=== PATIENT | male | born 1930 | race Caucasian/White ===

== ENCOUNTER 2017-05-08 07:18 | Day surgery (SDC) | payer OTHER, BC ==
[2017-05-07 15:51] VITALS: BMI 21.1
[2017-05-08] MEDS ORDERED: TAMSULOSIN HCL 0.4 MG CAP.ER.24H (FP) ONE (07:44)
[2017-05-08] MEDS ORDERED: PIPERACILLIN/TAZOB 3.375 GM/50 ML PRE-DOCKED IVPB ONE (09:45)
[2017-05-08] MEDS ORDERED: PROPOFOL 20 ML ONE ×3 (10:39→11:54)
[2017-05-08] MEDS ORDERED: ROCURONIUM BROMIDE 50 MG/5 ML VIAL ONE (10:43)
[2017-05-08] MEDS ORDERED: DEXAMETHASONE SOD PHOSPHATE 4 MG/1 ML VIAL ONE (11:38)
[2017-05-08] MEDS ORDERED: ONDANSETRON 4 MG/2 ML VIAL ONE (11:38)
[2017-05-08] MEDS ORDERED: GLYCOPYRROLATE 0.2 MG/1 ML VIAL ONE (12:04)
[2017-05-08] MEDS ORDERED: NEOSTIGMINE METHYLSULFATE 0.5 MG/ML - 10 ML MDV ONE (12:04)
[2017-05-08] MEDS ORDERED: ONDANSETRON 4 MG/2 ML VIAL IVPUSH PRN (12:31)
[2017-05-08] MEDS ORDERED: oxyCODONE HCL 5 MG TABLET PO PRN (12:31)
[2017-05-08] MEDS ORDERED: ACETAMINOPHEN 325 MG TABLET (FP) PO PRN (12:31)
[2017-05-08] MEDS ORDERED: ACETAMINOPHEN INJECTION 100 ML IVPB ONE (12:59)
[2017-05-08] MEDS ORDERED: ACETAMINOPHEN 1000 MG/100 ML VIAL (NON FORMULARY) IVPB ONE (13:02)
--- NOTE | 2017-05-08 14:45 | OP ---
DATE OF OPERATION: 05/08/2017 PREOPERATIVE DIAGNOSIS: Chronically incarcerated right inguinal hernia, inguinal scrotal hernia. POSTOPERATIVE DIAGNOSIS: Chronically incarcerated right inguinal hernia, inguinal scrotal hernia. PROCEDURE: 1. Laparoscopic repair of chronically incarcerated right inguinal scrotal hernia with mesh. 2. Laparoscopic repair of left inguinal hernia with mesh SURGEON: Jamey Stark MD [employer] FURNACE INSTALLER: Trevor Spivey MD ANESTHESIA: Kane Goldberg DO (general). ESTIMATED BLOOD LOSS: Minimal. SPECIMEN: None. DESCRIPTION OF PROCEDURE: This is an 86-year-old gentleman with a very longstanding history of having a large inguinal scrotal hernia that is chronically incarcerated. Patient was being followed since he did not wish to undergo surgery. Approximately two weeks ago, he presented to the hospital with acute incarceration that required manual reduction of the acutely incarcerated component. The chronically incarcerated component was not reduced. This alleviated his acute pain, and the patient is now here for an operative repair. Patient was identified and appropriately positioned on the operating room table. After placement of general anesthesia, the abdomen was prepped and draped in the usual sterile fashion with ChloraPrep. An infraumbilical incision was made deep into the subcutaneous tissues. The fascia of the rectus muscle on the right identified. The muscle split. Under direct vision, the dissector balloon followed by structural balloon placed. Also, under direct vision, a suprapubic 11-mm port placed. Due to the large sac and chronicity of incarceration of the right inguinal hernia, a 5- mm left lower quadrant PD port placed under direct vision, as well. The sac identified and from the cord structures with blunt and sharp dissection. The sac was reduced back into the preperitoneal space. A 4.5 x 6 piece of Versatex mesh was keyhole placed through the suprapubic port site. The mesh wrapped around the cord structures laterally to reconstruct the internal ring. Laterally, the mesh anchored to the anterior abdominal wall and lateral abdominal wall, and medially the mesh anchored to the anterior abdominal wall, pubic tubercle, and Coopers ligament. The sac itself was anchored to the anterior abdominal wall. Upon completion of the right side, similar structures on the left side identified. On the left side, the patient was noted to have a small indirect inguinal hernia sac. This reduced back into the preperitoneal space. A 4.5 x 6 piece of Versatex mesh was keyhole placed through the suprapubic port site. The mesh wrapped around the cord structures laterally to reconstruct the internal ring. Laterally, the mesh anchored to the anterior abdominal wall and lateral abdominal wall. Medialy, the mesh was overlapped in the midline, anchored to anterior abdominal wall, pubic tubercle, and Coopers ligament. The preperitoneal space desufflated under direct vision. The operative field examined and noted to be hemostatic. The patient on the right had a large indirect inguinal hernia. The direct floor was not violated, but markedly attenuated. He had a similar finding on the left side. There was no direct component, but the direct inguinal floor was attenuated, and he had a smaller indirect inguinal hernia. The fascia at both port sites were reapproximated with interrupted 0 Vicryl suture, and the skin closed with 4-0 subcuticular Biosyn followed by Dermabond. At the conclusion of the case, sponge counts were correct. ATTESTATION: Brief operative note handwritten on the preprinted form. [facility] will be queried prior to giving any narcotics. Radha AUGUSTE [id number] MTDD
[2017-05-08] MEDS: METOPROLOL TARTRATE 50 MG TABLET (FP) PO SCH (21:18)
[2017-05-08] MEDS ORDERED: ATORVASTATIN CA 10 MG TABLET (FP) PO SCH (22:00)
[2017-05-08] MEDS ORDERED: FINASTERIDE 5 MG TABLET (FP) PO SCH (22:00)
[2017-05-08] MEDS ORDERED: PRAVASTATIN 10 MG PO SCH (22:00)
[2017-05-08] MEDS ORDERED: metFORMIN HCL 500 MG TABLET (FP) PO SCH (22:00)
[2017-05-09 05:55] VITALS: BP 124/50; PULSE 89; TEMP 98.6
[2017-05-09] MEDS: METOPROLOL TARTRATE 50 MG TABLET (FP) PO SCH (09:23)
== END 2017-05-09 12:19 | disposition home or self-care (01) ==
LOC: FASU 07:18 → FM/S 19:23 → FASU 05-09 12:19
PROVIDERS: ATTEND Surgery
PROC: 0YUA4JZ Supplement Bilateral Inguinal Region with Synthetic Substitute, Percutaneous Endoscopic Approach (ICD-10-PCS; principal; 2017-05-08 10:57)
DX: K40.20 Bilateral inguinal hernia, without obstruction or gangrene, not specified as recurrent (principal)
CPT/HCPCS: 94760